=== PATIENT | male | born 1960 | race Caucasian/White ===

== ENCOUNTER 2019-10-17 12:15 | Day surgery (SDC) | payer MEDICARE, OTHER ==
[~2019-10-17] VITALS: Ht 167.6 cm; Wt 142.9 kg
[~2019-10-17 12:15] MED LIST: ASPI325T17 PO; CITA20TA9 PO; CLON1TAB PO; GABA300C10 PO; MELO15TA6 PO; OXYC15TA75 PO; TRAM50TA2 PO; ZALE10CA43 PO
[2019-10-17] MEDS ORDERED: LACTATED RINGERS 1,000 ML IV SCH (12:44)
[2019-10-17 12:55] VITALS: BP 128/80
[2019-10-17] MEDS ORDERED: DULO30CA2 PO (12:55)
[2019-10-17] MEDS ORDERED: PHEN37.53 PO (12:55)
[2019-10-17] MEDS ORDERED: ZONI100C29 PO (12:55)
[2019-10-17] MEDS ORDERED: OXCA300T19 PO (12:55)
[2019-10-17] MEDS ORDERED: TIZA4TAB2 PO (12:55)
[2019-10-17] MEDS ORDERED: MELO15TA24 PO (12:55)
[2019-10-17] MEDS ORDERED: PRAZ1CAP2 PO (12:55)
[2019-10-17] MEDS ORDERED: CHLORHEXIDINE 15 ML UDC MM ONE (13:00)
[2019-10-17 13:14] LABS: BASOPHILS # (AUTO) 0.03 x10^3/uL (0-0.1); BASOPHILS % (AUTO) 0 % (0-1); EOSINOPHILS # (AUTO) 0.13 x10^3/uL (0-0.4); EOSINOPHILS % (AUTO) 2 % (1-7); LYMPHOCYTES # (AUTO) 1.68 x10^3/uL (1-3.4); LYMPHOCYTES % (AUTO) 20 % (22-44); MD NO; MEAN CORPUSCULAR HEMOGLOBIN 28.2 pg (27.5-34.5); MEAN CORPUSCULAR HGB CONC 33.8 g/dL (33.2-36.2); MEAN CORPUSCULAR VOLUME 83.5 fL (81-97); MEAN PLATELET VOLUME 7.7 fL (7.4-10.4); MONOCYTES # (AUTO) 0.68 x10^3/uL (0.2-0.8); MONOCYTES % (AUTO) 8 % (2-9); NEUTROPHILS # (AUTO) 5.98 x10^3/uL (1.8-6.8); NEUTROPHILS % (AUTO) 70 % (42-75); PLATELET COUNT 226 x10^3/uL (130-400); RED BLOOD COUNT 5.43 x10^6/uL (4.38-5.82); RED CELL DISTRIBUTION WIDTH 14.5 % (9.4-14.8)
[2019-10-17 13:22] LABS: INTERNATIONAL NORMALIZED RATIO 0.94 (0.93-1.1)
[2019-10-17 13:24] LABS: ANION GAP 8 mmol/L (5-15); CALCIUM 8.6 mg/dL (8.5-10.1); CHLORIDE 109 mmol/L (98-107); CREATININE 0.91 mg/dL (0.7-1.3)
[2019-10-17 14:03] LABS: MICROSCOPIC AUTO
[2019-10-17] MEDS ORDERED: OXYcodone 5 MG/5 ML ORAL.SOL UDC PO PRN (14:30)
[2019-10-17] MEDS ORDERED: KETOROLAC 30 MG/1 ML IVPush PRN (14:30)
[2019-10-17] MEDS ORDERED: LABETALOL 5MG/ML, 20ML IV PRN (14:30)
[2019-10-17] MEDS ORDERED: ACETAMINOPHEN 325 MG TABLET PO PRN (14:30)
[2019-10-17] MEDS ORDERED: FENTANYL PF 100 MCG/2ML IV PRN (14:30)
[2019-10-17] MEDS ORDERED: DIAZEPAM 5 MG/ML, 2ML IVPush PRN (14:30)
[2019-10-17] MEDS ORDERED: hydrALAzine 20 MG/ML, 1ML IV PRN (14:30)
[2019-10-17] MEDS ORDERED: HYDROmorphone 1 MG/ML, 1ML INJ IVPush PRN (14:30)
[2019-10-17] MEDS ORDERED: ONDANSETRON 2MG/ML, 2ML IVPush PRN (14:30)
[2019-10-17] MEDS ORDERED: MIDAZOLAM 1 MG/ML, 2ML ONE (15:14)
[2019-10-17] MEDS ORDERED: FENTANYL PF 250 MCG/5ML ONE (15:14)
[2019-10-17] MEDS ORDERED: CEFAZOLIN 1,000 MG ONE (15:17)
[2019-10-17] MEDS ORDERED: SUCCINYLCHOLINE 20 MG/ML, 10ML ONE (15:17)
[2019-10-17] MEDS ORDERED: ROCURONIUM 10 MG/ML,10ML ONE (15:17)
[2019-10-17] MEDS ORDERED: ONDANSETRON 2MG/ML, 2ML ONE (15:17)
[2019-10-17] MEDS ORDERED: PROPOFOL 10 MG/ML, 20ML ONE (15:17)
[2019-10-17] MEDS ORDERED: OMNIPAQUE 350 MG/ML, 50 ML BOTTLE IV ONE (15:45)
[2019-10-17] MEDS ORDERED: FENTANYL PF 100 MCG/2ML ONE (16:36)
[2019-10-17] MEDS ORDERED: OXYcodone 5 MG/5 ML ORAL.SOL UDC ONE (16:36)
[2019-10-17] MEDS ORDERED: ACETAMINOPHEN 650 MG/20.3 ML UDC ONE (16:36)
[2019-10-17] MEDS ORDERED: KETOROLAC 30 MG/1 ML ONE (17:01)
[2019-10-17] MEDS ORDERED: hydrALAzine 20 MG/ML, 1ML ONE (17:01)
[2019-10-18] MEDS ORDERED: OMNIPAQUE 350 MG/ML, 50 ML BOTTLE ONE (14:25)
== END 2019-10-17 19:00 | disposition home or self-care (01) ==
LOC: OUT 12:15
PROVIDERS: ATTEND Urology
DX: N13.2 Hydronephrosis with renal and ureteral calculous obstruction (principal); Z11.59 Encounter for screening for other viral diseases; N13.5 Crossing vessel and stricture of ureter without hydronephrosis; N40.1 Benign prostatic hyperplasia with lower urinary tract symptoms; N13.8 Other obstructive and reflux uropathy; G47.33 Obstructive sleep apnea (adult) (pediatric); F43.10 Post-traumatic stress disorder, unspecified; E29.1 Testicular hypofunction; G89.4 Chronic pain syndrome; E66.01 Morbid (severe) obesity due to excess calories; Z68.43 Body mass index [BMI] 50.0-59.9, adult; Z79.01 Long term (current) use of anticoagulants; Z79.1 Long term (current) use of non-steroidal anti-inflammatories (NSAID); Z79.891 Long term (current) use of opiate analgesic; Z79.899 Other long term (current) drug therapy; Z87.442 Personal history of urinary calculi; Z90.49 Acquired absence of other specified parts of digestive tract
CPT/HCPCS: 36415; 52332; 52351; 74420; 80048; 81001; 85025; 85610; 87635; 93005; C2617; C2625; J0330; J0360; J0690; J1885; J2250; J2405; J2704; J3010; J7120; Q9967

== ENCOUNTER 2019-12-05 12:30 | Day surgery (SDC) | payer MEDICARE ==
[~2019-12-05] VITALS: Ht 167.6 cm; Wt 136.3 kg
[~2019-12-05 12:30] MED LIST changes: +DULO30CA2 PO; +MELO15TA24 PO; +OXCA300T19 PO; +PHEN37.53 PO; +PRAZ1CAP2 PO; +TIZA4TAB2 PO; +ZONI100C29 PO
[2019-12-05 13:33] VITALS: BP 114/72
[2019-12-05] MEDS ORDERED: LACTATED RINGERS 1,000 ML IV SCH (13:45)
[2019-12-05] MEDS ORDERED: CHLORHEXIDINE 15 ML UDC ONE (13:47)
[2019-12-05] MEDS ORDERED: CHLORHEXIDINE 15 ML UDC MM ONE (14:00)
[2019-12-05 14:26] LABS: MICROSCOPIC INDICATED
[2019-12-05] MEDS ORDERED: FENTANYL PF 100 MCG/2ML ONE ×2 (14:47→16:06)
[2019-12-05] MEDS ORDERED: MIDAZOLAM 1 MG/ML, 2ML ONE (14:47)
[2019-12-05] MEDS ORDERED: CEFAZOLIN 1,000 MG ONE (14:50)
[2019-12-05] MEDS ORDERED: PROPOFOL 10 MG/ML, 20ML ONE (14:50)
[2019-12-05] MEDS ORDERED: ONDANSETRON 2MG/ML, 2ML ONE (14:50)
[2019-12-05] MEDS ORDERED: KETOROLAC 30 MG/1 ML ONE (14:50)
[2019-12-05] MEDS ORDERED: DIAZEPAM 5 MG/ML, 2ML IVPush PRN (15:30)
[2019-12-05] MEDS ORDERED: MEPERIDINE/PF 25MG/0.5ML IVPush PRN (15:30)
[2019-12-05] MEDS ORDERED: LABETALOL 5MG/ML, 20ML IV PRN (15:30)
[2019-12-05] MEDS ORDERED: hydrALAzine 20 MG/ML, 1ML IV PRN (15:30)
[2019-12-05] MEDS ORDERED: OXYcodone 5 MG/5 ML ORAL.SOL UDC PO PRN (15:30)
[2019-12-05] MEDS ORDERED: PROMETHAZINE 25 MG/ML, 1ML IVPush PRN (15:30)
[2019-12-05] MEDS ORDERED: ONDANSETRON 2MG/ML, 2ML IVPush PRN (15:30)
[2019-12-05] MEDS ORDERED: ACETAMINOPHEN 325 MG TABLET PO PRN (15:30)
[2019-12-05] MEDS ORDERED: TIZANIDINE 4MG TABLET PO SCH (16:00)
[2019-12-05] MEDS ORDERED: PRAZOSIN 1 MG CAPSULE PO SCH (16:00)
[2019-12-05] MEDS ORDERED: OXYcodone 5 MG/5 ML ORAL.SOL UDC ONE ×2 (16:06→16:16)
[2019-12-05] MEDS: FENTANYL PF 100 MCG/2ML IV PRN ×2 (16:13→16:20)
[2019-12-05] MEDS ORDERED: HYDROmorphone 1 MG/ML, 1ML INJ ONE ×2 (16:16→16:33)
[2019-12-05] MEDS: HYDROmorphone 1 MG/ML, 1ML INJ IVPush PRN ×3 (16:26→16:36)
[2019-12-05] MEDS ORDERED: HYDROmorphone 2 MG/ML, 1ML ONE (16:29)
[2019-12-05] MEDS ORDERED: OXCARBAZEPINE 300MG TABLET PO SCH (21:00)
[2019-12-06] MEDS ORDERED: MELOXICAM 15 MG TABLET PO SCH ×2 (09:00)
[2019-12-06] MEDS ORDERED: DULOXETINE 30 MG CAPSULE.DR PO SCH (09:00)
== END 2019-12-05 18:00 | disposition home or self-care (01) ==
LOC: OUT 12:30
PROVIDERS: ATTEND Urology
DX: Z46.6 Encounter for fitting and adjustment of urinary device (principal); Z20.828 Contact with and (suspected) exposure to other viral communicable diseases; N13.2 Hydronephrosis with renal and ureteral calculous obstruction; N40.0 Benign prostatic hyperplasia without lower urinary tract symptoms; G47.33 Obstructive sleep apnea (adult) (pediatric); E66.9 Obesity, unspecified; E29.1 Testicular hypofunction; G89.4 Chronic pain syndrome; Z79.1 Long term (current) use of non-steroidal anti-inflammatories (NSAID); Z79.891 Long term (current) use of opiate analgesic; Z79.899 Other long term (current) drug therapy; Z90.49 Acquired absence of other specified parts of digestive tract
CPT/HCPCS: 52353; 74018; 81001; 82360; 87086; 87635; 88300; J0360; J0690; J1170; J1885; J2250; J2405; J2704; J3010; J7120; 76000